=== PATIENT | female | born 1990 | race Caucasian/White ===

== ENCOUNTER 2018-01-11 14:04 | Emergency (ER) | END 2018-01-11 14:53 | disposition home or self-care (01) ==

== ENCOUNTER 2018-01-11 14:54 | Outpatient (CLI) | END 2018-01-11 17:23 | disposition home or self-care (01) ==

== ENCOUNTER 2018-04-06 16:28 | Emergency (ER) | payer OTHER ==
[~2018-04-06] VITALS: Ht 167.6 cm; Wt 76.4 kg
[~2018-04-06 16:28] MED LIST: ASPI-817 PO; NITR-58 PO; PREN-93 PO
[2018-04-06 16:53] VITALS: Ht 167.6 cm; Wt 76.4 kg
--- NOTE | 2018-04-06 16:54 | ERD ---
ER Documentation Chief Complaint Chief Complaint SOB while breast feeding this AM HPI 28-year-old female. The patient is about 40 days status post delivery of her second child. She states that earlier this morning while breast-feeding her child she started to have epigastric and substernal chest discomfort that she describes as pressure and nonradiating. She has had waxing and waning symptoms throughout the day. She also feels that she cannot take a deep breath in. She denies any calf swelling or calf pain, no pleuritic discomfort. No history of CHF or acute coronary syndrome. She is a non-smoker. She denies significant anxiety. During the patient's encounter translation services were utilized Language: [Aremenian] Source: [in person] ROS All systems reviewed and are negative except as per history of present illness. Medications Home Meds Reported Medications Vit No.124/Iron/FA ( Vitamin Tablet) 1 Each Tablet, 1 EACH PO DAILY, TAB 01/11/18 Discontinued Reported Medications Nitrofurantoin Monohyd Macrocr* (Macrobid*) 100 Mg Capsr, 100 MG PO BID, CAP 01/11/18 Aspirin* (Aspirin* EC) 81 Mg Tablet.dr, 81 MG PO DAILY, TAB 01/11/18 Allergies Allergies: Coded Allergies: No Known Allergy (Unverified , 04/06/18) PMhx/Soc Medical and Surgical Hx: pt denies Medical Hx Hx Alcohol Use: No Hx Substance Use: No Hx Tobacco Use: No FmHx Family History: No diabetes Physical Exam Vitals Vital Signs Date Temp Pulse Resp B/P (MAP) Pulse Ox O2 O2 Flow FiO2 Time Delivery Rate 04/06/18 98.2 60 17 107/65 99 Room Air 22:23 (79) 04/06/18 98.5 59 16 107/68 100 Room Air 18:49 (81) 04/06/18 98.6 78 18 124/79 97 16:53 (94) Physical Exam General: Well developed, well nourished, no acute distress Head: Normocephalic, atraumatic. Eyes: Pupils equally reactive, EOM intact ENT: Moist mucous membranes Neck: Supple, no lymphadenopathy Respiratory: Lungs clear bilaterally, no distress Cardiovascular: RRR, no murmurs, rubs, or gallops Abdominal: Soft, non-tender, non-distended, no peritoneal signs : Deferred MSK: No edema, no unilateral swelling, 5/5 strength Neurologic: Alert and oriented, moving all extremities, normal speech, no focal weakness, no cerebellar signs Skin: No rash Psych: Normal mood Result Diagram: 04/06/18 1736 04/06/18 1736 Results 24 hrs Laboratory Tests Test 04/06/18 17:36 04/06/18 17:37 White Blood Count 8.4 10^3/ul Red Blood Count 4.95 10^6/ul Hemoglobin 13.0 g/dl Hematocrit 40.8 % Mean Corpuscular Volume 82.4 fl Mean Corpuscular Hemoglobin 26.3 pg Mean Corpuscular Hemoglobin Concent 31.9 g/dl Red Cell Distribution Width 14.2 % Platelet Count 225 10^3/UL Mean Platelet Volume 11.2 fl Immature Granulocytes % 0.400 % Neutrophils % 64.7 % Lymphocytes % 27.4 % Monocytes % 5.6 % Eosinophils % 1.4 % Basophils % 0.5 % Nucleated Red Blood Cells % 0.0 /100WBC Immature Granulocytes # 0.030 10^3/ul Neutrophils # 5.4 10^3/ul Lymphocytes # 2.3 10^3/ul Monocytes # 0.5 10^3/ul Eosinophils # 0.1 10^3/ul Basophils # 0.0 10^3/ul Nucleated Red Blood Cells # 0.0 10^3/ul Urine Test NEGATIVE Sodium Level 141 mmol/L Potassium Level 3.9 mmol/L Chloride Level 105 mmol/L Carbon Dioxide Level 25 mmol/L Anion Gap 11 Blood Urea Nitrogen 15 mg/dl Creatinine 0.64 mg/dl Est Glomerular Filtrat Rate mL/min > 60 mL/min Glucose Level 93 mg/dl Calcium Level 9.6 mg/dl Total Bilirubin 0.1 mg/dl Direct Bilirubin 0.00 mg/dl Indirect Bilirubin 0.1 mg/dl Aspartate Amino Transf (AST/SGOT) 26 IU/L Alanine Aminotransferase (ALT/SGPT) 17 IU/L Alkaline Phosphatase 137 IU/L Troponin I < 0.012 ng/ml Total Protein 8.5 g/dl Albumin 4.6 g/dl Globulin 3.90 g/dl Albumin/Globulin Ratio 1.17 Lipase 144 U/L Prothrombin Time 12.4 Sec Prothrombin Time Ratio 1.0 INR International Normalized Ratio 0.91 Activated Partial Thromboplast Time 29.7 Sec D-Dimer 661.65 ng/ml D-Dimer Comment Urine Color YELLOW Urine Clarity CLEAR Urine pH 5.0 Urine Specific [place] 1.017 Urine Ketones NEGATIVE mg/dL Urine Nitrite NEGATIVE mg/dL Urine Bilirubin NEGATIVE mg/dL Urine Urobilinogen NEGATIVE mg/dL Urine Leukocyte Esterase TRACE Dilma/ul Urine Microscopic RBC 0 /HPF Urine Microscopic WBC 1 /HPF Urine Hemoglobin NEGATIVE mg/dL Urine Glucose NEGATIVE mg/dL Urine Total Protein NEGATIVE mg/dl Current Medications Medications Dose Sig/Quinn Start Time Status Last (Trade) Ordered Route PRN Stop Time Admin Dose Reason Admin Sodium 1,000 ml @ Q1H STAT 04/06/18 DC 04/06/18 Chloride 1,000 mls/hr IV 19:33 20:16 04/06/18 20:32 IV Flush 10 ml STK-MED 04/06/18 DC 04/06/18 (NS 10 ml) ONCE .ROUTE 20:01 20:01 04/06/18 20:02 Sodium 100 ml @ ud STK-MED 04/06/18 DC 04/06/18 Chloride ONCE .ROUTE 20:01 20:01 04/06/18 20:02 Iohexol 100 ml @ ud STK-MED 04/06/18 DC 04/06/18 ONCE .ROUTE 20:01 20:01 04/06/18 20:02 Iohexol 50 ml STK-MED 04/06/18 DC 04/06/18 (Omnipaque ONCE .ROUTE 20:01 20:01 350mg/ ml) 04/06/18 20:02 Procedures/MDM EKG, MONITORS, & DIAGNOSTIC IMAGING: EKG: I reviewed and interpreted a 12-lead EKG. Rhythm: Normal sinus rhythm ST Changes: No contiguous ST segment elevations T waves: No contiguous T wave inversions Impression: No evidence of acute cardiac ischemia Chest x-ray: I reviewed and interpreted a 1 view of the chest Mediastinum: No enlargement Cardiac silhouette: No cardiomegaly Airspace: Clear lung santos bilaterally without evidence of pneumothorax Bones: No evidence of fracture CTPA: No evidence of pulmonary embolism LAB INTERPRETATION: * Negative troponin, positive d-dimer MEDICAL DECISION MAKING: The patient presents with shortness of breath and having difficulty taking a deep breath and while breast-feeding. Unclear etiology at this time. The patient has no hypertension. She has no signs or symptoms concerning for cardiomyopathy. Pulmonary embolism would be a consideration though 40 days out from and this seems less likely. A d-dimer will be appropriate. Anxiety could be considered but the patient does not appear to be overly anxious. Consider reflux. Very low pretest probability for cardiac etiology. EKG and troponin will be appropriate. The patient is a greater than 6 hours of symptoms. ER COURSE: * D-dimer positive prompting CTPA * CTPA negative. * Patient continues to be well-appearing in the emergency room setting. At this point I have rule out acute coronary syndrome, pulmonary embolism. Unclear etiology as to the patient's symptoms with the patient's symptoms are improved. Consider underlying stress given recent . Return precautions were discussed with the patient can be safely discharged. CONSULTATION: None DISPOSITION PLAN: The patient does not have an identifiable emergent medical condition that warrants inpatient hospitalization at this time. The patient is deemed safe for discharge with outpatient follow-up. We discussed follow up with the patient's primary care doctor within 24 to 48 hours as needed. We also discussed return to the emergency room for worsening symptoms or worsening condition. Outpatient referral: None required Discharge Medications: None required Departure Diagnosis: Primary Impression: Chest pain Chest pain type: unspecified Qualified Codes: R07.9 - Chest pain, unspecified Condition: Stable JANNY DUNCAN MD Apr 06, 2018 16:54
[2018-04-06] MEDS ORDERED: SOD CHLORIDE 0.9% 1,000 ML IV STA (19:33)
[2018-04-06] MEDS ORDERED: IOHEXOL 350MG/ML 50 ML BTL ONE (20:01)
[2018-04-06] MEDS ORDERED: SOD CHLORIDE 0.9% 100 ML ONE (20:01)
[2018-04-06] MEDS ORDERED: IOHEXOL 100 ML ONE (20:01)
[2018-04-06 22:23] VITALS: BP 107/65; PULSE 60; RESP 17
== END 2018-04-06 22:25 | disposition home or self-care (01) ==
LOC: E/R 16:28
DX: O99.89 Other specified diseases and conditions complicating pregnancy, childbirth and the puerperium (principal); R07.9 Chest pain, unspecified
CPT/HCPCS: 36415; 71045; 71275; 80053; 81001; 83690; 84484; 84703; 85025; 85378; 85610; 85730; 93005; J7030; Q9967; Z7502; Z7610